=== PATIENT | female | born 1940 | race Caucasian/White ===

== ENCOUNTER → 2017-12-04 | Outpatient (CLI) | payer MEDICARE, BC ==
[~2017-12-04] MED LIST: ASPIRIN E.C. 8181 MG PO; BYSTOLIC10 MG PO; CALCIUM; CALCIUM 500 W/V1 TAB PO; CARDI-OMEGA1000 MG PO; CEPHALEXIN500 M1 PO; COZAAR 25MG25 MG/TAB PO; DOXYCYCLINE 10100 MG PO; HCTZ 25MG TAB25 MG PO; LIPITOR; LIPITOR 10MG10 MG PO; ORAXYL20 MG PO; OS-CAL 500 + D1 TAB PO; PERIOSTAT PO; SYNTHROID0.112 MG/T PO; TOPCARE ASPIRIN81 MG PO; TOPROL XL 25MG25 MG PO
== END ==
LOC: MC.RAD 14:34
DX: Z12.31 Encounter for screening mammogram for malignant neoplasm of breast (principal)

== ENCOUNTER → 2018-07-27 | Outpatient (CLI) | payer MEDICARE, BC | LOC: MC.RAD 13:50 | DX: N60.02 Solitary cyst of left breast (principal) | CPT/HCPCS: G0279 ==

== ENCOUNTER 2018-11-29 06:57 | Outpatient (CLI) | payer MEDICARE, BC ==
[~2018-11-29] VITALS: Ht 165.1 cm; Wt 29.4 kg
[2018-11-29] MEDS ORDERED: THE MEDICINE S200 M2 PO (07:48)
[2018-11-29 07:54] VITALS: BP 147/72; PULSE 80; TEMP 98.3
[2018-11-29 10:00] VITALS: BP 137/62; PULSE 72; TEMP 97.9
[2018-11-29 10:15] VITALS: BP 138/70; PULSE 72; TEMP 97.9
[2018-11-29 10:24] LABS: MEAN CELL VOLUME 95 fl (80.0-100.0); MEAN CORPUSCULAR HGB CONC 32 g/dl (33.0-37.0); MEAN PLATELET VOLUME 10.7 fl (7.4-10.4); RED BLOOD COUNT 2.83 M/mm3 (4.10-5.30); REDCELL DISTRIBUTION WIDTH-CV 16.3 % (11.5-14.5)
[2018-11-29 10:30] VITALS: BP 141/64; PULSE 75; TEMP 97.9
[2018-11-29 10:34] LABS: HEMATOCRIT 26.8 % (37.0-47.0); HEMOGLOBIN 8.6 g/dl (12.5-16.0); MEAN CORPUSCULAR HEMOGLOBIN 30 pg (27.0-31.0)
[2018-11-29 10:35] LABS: PLATELET COUNT 38 K/mm3 (130-400)
[2018-11-29 11:00] VITALS: BP 145/62; PULSE 72; TEMP 98
[2018-11-29 11:15] VITALS: BP 141/62; PULSE 76; TEMP 98
--- NOTE | 2018-11-29 11:15 | NUR ---
INT discontinued intact. Discharge instructions given. Transferred to private car by [email or web address]
[2018-11-29 11:36] LABS: BAND 10 % (0-10); EOSINOPHIL 3 % (0-4); LYMPHOCYTE 32 % (20.0-51.0); MYELOCYTE 3 % (0-0); NEUTROPHILS 13 % (42.0-75.2); NUCLEATED RED BLOOD CELL 5 (0-6)
[2018-11-29 11:37] LABS: PLATELET ESTIMATE DECREASED (NORMAL)
[2018-11-29 11:39] LABS: POLYCHROMASIA 1+; TEAR DROP CELLS 1+
== END 2018-11-29 13:04 | disposition home or self-care (01) ==
LOC: SDCO 06:57
PROVIDERS: Pathology Anatomic Pathology & Clinical Pathology
DX: D61.818 Other pancytopenia (principal); Z90.49 Acquired absence of other specified parts of digestive tract; Z90.710 Acquired absence of both cervix and uterus; Z79.82 Long term (current) use of aspirin; I10 Essential (primary) hypertension
CPT/HCPCS: J2704; J3010

== ENCOUNTER → 2020-04-06 | Outpatient (CLI) | payer MEDICARE, BC ==
[~2020-04-06] MED LIST changes: +THE MEDICINE S200 M2 PO
== END ==
LOC: MC.RAD 13:50
DX: Z12.31 Encounter for screening mammogram for malignant neoplasm of breast (principal)

== ENCOUNTER → 2021-05-16 | Outpatient (CLI) | payer MEDICARE, BC | LOC: MC.RAD 09:48 | DX: Z12.31 Encounter for screening mammogram for malignant neoplasm of breast (principal) ==

== ENCOUNTER → 2022-05-29 | Outpatient (CLI) | payer MEDICARE, BC | LOC: MC.RAD 14:01 | DX: Z12.31 Encounter for screening mammogram for malignant neoplasm of breast (principal) ==